=== PATIENT | female | born 1970 | race Caucasian/White ===

== ENCOUNTER → 2019-11-05 | Outpatient (CLI) | payer OTHER ==
[2019-11-09 15:10] LABS: HPV 16 Negative (Negative); HPV 18 Negative (Negative); HPV OTHER HR TYPES Negative (Negative)
== END | disposition home or self-care (01) ==
LOC: LAB SHORT 16:09 → LAB 16:09
PROVIDERS: Family Medicine
DX: Z01.419 Encounter for gynecological examination (general) (routine) without abnormal findings (principal)
CPT/HCPCS: 87624; G0145

== ENCOUNTER → 2020-02-21 | Outpatient (CLI) | payer OTHER | END | disposition home or self-care (01) | LOC: LAB SHORT 07:30 → PLD 07:30 | DX: D23.72 Other benign neoplasm of skin of left lower limb, including hip (principal) | CPT/HCPCS: 88305 ==

== ENCOUNTER → 2022-10-02 | Outpatient (CLI) | payer OTHER | END | disposition home or self-care (01) | LOC: PLD 11:01 → LAB 11:01 → LAB SHORT 11:01 | DX: D48.5 Neoplasm of uncertain behavior of skin (principal) | CPT/HCPCS: 88305 ==

== ENCOUNTER 2023-08-21 06:45 | Day surgery (SDC) | payer OTHER ==
[~2023-08-21] VITALS: Ht 165.1 cm; Wt 75.7 kg
[2023-08-21] MEDS ORDERED: AMBIEN5 MG PO (07:33)
[2023-08-21 08:41] VITALS: BP 97/62
--- NOTE | 2023-08-21 15:37 | NUR ---
08/21/23 Jes Hernandez LATE ENTRY: PRE-OPERATIVE TEST PERFORMED PRIOR TO PROCEDURE, BUT ENTERED INTO COMPUTER AT LATER TIME.
== END 2023-08-21 08:42 | disposition home or self-care (01) ==
LOC: ORSCSDS 06:45
PROVIDERS: Internal Medicine Gastroenterology
PROC: 0DJD8ZZ Inspection of Lower Intestinal Tract, Via Natural or Artificial Opening Endoscopic (ICD-10-PCS; principal; 2023-08-21 08:00)
DX: Z12.11 Encounter for screening for malignant neoplasm of colon (principal); Z87.891 Personal history of nicotine dependence
CPT/HCPCS: J2704; J7120

== ENCOUNTER 2024-07-11 07:54 | Inpatient (IN) | payer OTHER ==
[~2024-07-11] VITALS: Ht 162.6 cm; Wt 82.2 kg
[~2024-07-11 07:54] MED LIST: AMBIEN5 MG PO
[2024-07-11] MEDS ORDERED: Ondansetron HCl 2 MG / ML 2ML Vial IV ONE (08:10)
[2024-07-11] MEDS ORDERED: NS 1,000 ML IV SCH ×2 (08:10→11:20)
[2024-07-11] MEDS ORDERED: Ketorolac Tromethamine 30mg Vial IV ONE (08:10)
[2024-07-11 08:34] LABS: BASOPHILS ABSOLUTE AUTO 0.04 K/mm3 (0.00-0.23); BASOPHILS PERCENT AUTO 0 % (0-2); EOSINOPHILS ABSOLUTE AUTO 0.04 K/mm3 (0.00-0.68); EOSINOPHILS PERCENT AUTO 0 % (0-6); Hematocrit 39.6 % (33.0-51.0); Hemoglobin 14.2 g/dL (11.5-16.0); IMMATURE GRAN ABSOLUTE AUTO 0.08 K/mm3 (0.00-0.10); IMMATURE GRAN PERCENT AUTO 0 % (0-1); LYMPHOCYTES ABSOLUTE AUTO 1.14 K/mm3 (0.84-5.20); LYMPHOCYTES PERCENT AUTO 6 % (21-46); MONOCYTES ABSOLUTE AUTO 1.03 K/mm3 (0.16-1.47); MONOCYTES PERCENT AUTO 5 % (4-13); Mean Corpuscular HGB 29.7 pg (26.0-34.0); Mean Corpuscular HGB Conc 35.9 g/dL (31.5-36.5); Mean Corpuscular Volume 83 fL (80-100); Mean Platelet Volume 9.9 fL (9.1-12.4); NEUTROPHILS ABSOLUTE AUTO 16.96 K/mm3 (1.96-9.15); NEUTROPHILS PERCENT AUTO 88 % (41-73); Platelet Count 219 K/mm3 (150-400); RDW Coefficient Variation 12.4 % (11.7-14.2); RDW Standard Deviation 37.8 fL (35.1-46.3); Red Blood Cell Count 4.78 M/mm3 (3.80-5.20); White Blood Cell Count 19.29 K/mm3 (4.00-11.30)
[2024-07-11 08:43] LABS: Albumin, Blood 3.6 g/dL (3.4-5.0); Albumin/Globulin Ratio 1.1 (0.8-1.8); Bilirubin, Direct 0.1 mg/dL (0.0-0.3); Bilirubin, Indirect 0.6 mg/dL (0.1-0.7); Bilirubin, Total 0.7 mg/dL (0.1-1.0); Bun/Creatinine Ratio 22.9 (12.0-20.0); Calcium, Blood 9.3 mg/dL (8.5-10.1); Creatinine, Blood 0.57 mg/dL (0.40-1.00); Globulin, Blood 3.2 g/dL (2.2-4.0); Magnesium, Blood 1.6 mg/dL (1.6-2.4); Potassium, Blood 3.7 mmol/L (3.5-5.5); Total Protein, Blood 6.8 g/dL (6.4-8.2)
[2024-07-11 08:48] LABS: Source, Urine Clean Catch
[2024-07-11 08:58] LABS: Bilirubin, Urine Neg (Neg); Blood, Urine Neg (Neg); Glucose Qualitative, Urine Neg (Neg); Ketones, Urine Neg (Neg); Leukocyte Esterase, Urine Neg (Neg); Nitrite, Urine Neg (Neg); Protein, Urine Neg (Neg); Urobilinogen, Urine NORM (Normal)
[2024-07-11] MEDS ORDERED: Morphine Sulfate 4 MG/1 ML Injection IV ONE (09:05)
[2024-07-11 09:18] LABS: Appearance, Urine Clear (Clear); Color, Urine Yellow (P-Yellow)
[2024-07-11] MEDS ORDERED: LORazepam 2 MG/ML 1ML Injection IV ONE (09:40)
[2024-07-11 09:43] LABS: Influenza A, PCR NEGATIVE (NEGATIVE); Influenza B, PCR NEGATIVE (NEGATIVE); Resp Syncytial Virus, PCR NEGATIVE (NEGATIVE); SARS-Cov-2 (COVID-19) PCR, MMC NEGATIVE (NEGATIVE)
[2024-07-11] MEDS ORDERED: Metoclopramide HCl 5MG / ML 2ML Vial IV ONE (11:15)
[2024-07-11] MEDS ORDERED: DiphenhydrAMINE HCl 50 MG/ML 1ML Vial IV ONE (11:15)
[2024-07-11] MEDS ORDERED: Ampicillin Sod/Sulbactam Sod 3 GM in NS 100 ML IV ONE (11:20)
[2024-07-11] MEDS ORDERED: Ondansetron HCl 2 MG / ML 2ML Vial IV PRN (11:50)
[2024-07-11] MEDS ORDERED: FentaNYL Citrate 50 MCG/ML 2 ML Injection IV PRN (11:50)
[2024-07-11] MEDS ORDERED: FLU VACC TS2024-25(6MOS UP)/PF 45 MCG/0.5 ML SYRINGE IM SCH (11:50)
[2024-07-11] MEDS ORDERED: Lactated Ringer's 1,000 ML IV SCH ×2 (11:50→16:25)
[2024-07-11 15:41] VITALS: BP 129/70
[2024-07-11] MEDS ORDERED: MELO7.5 PO (15:47)
--- NOTE | 2024-07-11 16:52 | NUR ---
PHYSICIAN NOTIFICATION DR NGUYEN NOTIFIED OF LACTIC 2.8, ORDERED LITER BOLUS WIDE OPEN. THIS IS INFUSING. ORDERED APAP FOR ELEVATED TEMP. THIS WAS GIVEN. PT A/OX4. VERY TIRED, C/O HEADACHE AND WAS GIVEN ICE PACK FOR NECK AND HEAD, LIGHTS TURNED DOWN AND DOOR CLOSED. BED ALARM ON
[2024-07-11] MEDS ORDERED: Acetaminophen 325 MG TABLET PO PRN (17:00)
[2024-07-11] MEDS ORDERED: Acetaminophen 325 MG TABLET PO ONE (17:00)
[2024-07-11] MEDS ORDERED: Ampicillin Sod/Sulbactam Sod 3 GM in NS 100 ML IV SCH (18:00)
--- NOTE | 2024-07-11 18:08 | NUR ---
PHYSICIAN CONTACT CALLED DR NGUYEN REGARDING ADVANCING DIET, CONTINUED ELEVATED TEMP REGARDLESS APAP ADMIN PER NOV. ORDERED IBUPROFEN ONCE, INCREASE LR TO 125/HR, OKAYED SIPS AND CHIPS, RECHECK LACTIC AT 1999. ORDERS PLACED.
[2024-07-11] MEDS ORDERED: Ibuprofen 600 MG Tab PO ONE (18:10)
--- NOTE | 2024-07-11 18:17 | NUR ---
SHIFT SUMMARY PATIENT ARRIVED TO FLOOR THIS SHIFT FROM ER, CONCERNS FOR SEPSIS. LACTIC WAITING FOR RESULTS ON ARRIVAL. LR STARTED. SKIN INTACT. A/O X4. ABLE TO VOID. C/O ABDOMINAL PAIN, HEADACHE, BILAT KNEE PAIN AND BACK PAIN, NON PHARM INTERVENTIONS TRIED, LIGHTS DIMMED AND PATIENT ABLE TO REST IN BED WITH EYES CLOSED. ABLE TO MAKE NEEDS KNOWN. CALL LIGHT IN REACH, CARES ONGOING
[2024-07-11 19:48] VITALS: BP 111/61
[2024-07-11] MEDS ORDERED: Lactobacil 2-S.Thermo-Bifido 1 1 Cap PO SCH (21:00)
[2024-07-12 04:35] VITALS: BP 106/58
[2024-07-12 05:05] LABS: BASOPHILS ABSOLUTE AUTO 0.04 K/mm3 (0.00-0.23); BASOPHILS PERCENT AUTO 0 % (0-2); EOSINOPHILS PERCENT AUTO 1 % (0-6); Hematocrit 32.9 % (33.0-51.0); Hemoglobin 11.4 g/dL (11.5-16.0); IMMATURE GRAN ABSOLUTE AUTO 0.08 K/mm3 (0.00-0.10); IMMATURE GRAN PERCENT AUTO 0 % (0-1); LYMPHOCYTES ABSOLUTE AUTO 1.58 K/mm3 (0.84-5.20); LYMPHOCYTES PERCENT AUTO 9 % (21-46); MONOCYTES ABSOLUTE AUTO 0.88 K/mm3 (0.16-1.47); MONOCYTES PERCENT AUTO 5 % (4-13); Mean Corpuscular HGB 29.2 pg (26.0-34.0); Mean Corpuscular HGB Conc 34.7 g/dL (31.5-36.5); Mean Corpuscular Volume 84 fL (80-100); NEUTROPHILS ABSOLUTE AUTO 15.98 K/mm3 (1.96-9.15); NEUTROPHILS PERCENT AUTO 86 % (41-73); Platelet Count 185 K/mm3 (150-400); RDW Coefficient Variation 12.8 % (11.7-14.2); RDW Standard Deviation 39.1 fL (35.1-46.3); White Blood Cell Count 18.66 K/mm3 (4.00-11.30)
--- NOTE | 2024-07-12 05:13 | NUR ---
SHIFT SUMMARY PT AFEBRILE THROUGH THE NIGHT. LACTIC ACID IMPROVED TO 1.1. PT INDEPENDENT IN ROOM. IVF AND IV ANTIBIOTICS CONTINUE. PT C/O SOME ABD TENDERNESS, BUT DENIES THE NEED FOR PAIN MEDICATION. DENIES N/V/D. ICE PACK PRN HEADACHE. SIDE RAILS UP X2, CALL LIGHT WITHIN REACH.
[2024-07-12 05:30] LABS: Bun/Creatinine Ratio 16.5 (12.0-20.0); Calcium, Blood 8.2 mg/dL (8.5-10.1); Creatinine, Blood 0.55 mg/dL (0.40-1.00); Potassium, Blood 3.3 mmol/L (3.5-5.5)
[2024-07-12 07:29] VITALS: BP 129/77
[2024-07-12] MEDS ORDERED: Potassium Chloride 20 MEQ TabCR PO ONE ×2 (08:00→10:35)
[2024-07-12] MEDS ORDERED: Enoxaparin 40 MG/0.4 ML SYR SC SCH (09:00)
--- NOTE | 2024-07-12 16:37 | NUR ---
SHIFT SUMMARY PT RESTING QUIETLY AT START OF SHIFT, BUT AWAKE FOR SHIFT REPORT. PT ADMITTED FOR DIVERTICULITIS; NPO AT START OF SHIFT. DR ROSALES IN TO SEE PT AND DISCUSS PLAN OF CARE. DIET ADVANCED TO CL; PT TOLERATING WELL TO PRESENT. PT TAKING IT SLOW AT FIRST. MEDICATED X1 FOR C/O AGUIAR; PT REPORTING IT EFFECTIVE. UP INDEPENDNENTLY IN RM AND TO BTHRM. PT'S IN AFTER DR ROSALES AND AGAIN LATER THIS AFTERNOON. PT DENIES NEEDS TO PRESENT. NO C/O N/V. CALL LT IN REACH.
[2024-07-12 16:49] VITALS: BP 139/82
[2024-07-12] MEDS ORDERED: [UNRECOGNIZED DRUG - OTHER] PO (17:32)
[2024-07-12] MEDS ORDERED: Piperacillin/Tazobactam Sod 3.375 GM in NS 100 ML IV SCH (18:00)
[2024-07-12 19:24] VITALS: BP 134/73
[2024-07-13 02:31] VITALS: BP 131/74
--- NOTE | 2024-07-13 05:32 | NUR ---
SHIFT SUMMARY PT WITH ABD PAIN AND BACK PAIN DURING THE NIGHT. MEDICATED WITH FENTANYL X2 WITH RELIEF- SEE EMAR. PT C/O NAUSEA THIS EARLY AM, ZOFRAN GIVEN WITH RELIEF- SEE EMAR. ENCOURAGED PT TO SLOW DOWN CLEAR LIQUIDS WITH INCREASED PAIN/ NAUSEA, BUT PT STATES SHE HADN'T HAD ANY LIQUIDS SINCE HS. PT AFEBRILE THROUGH THE NIGHT. IVF AND ANTIBIOTICS CONTINUE. CALL LIGHT WITHIN REACH, SIDE RAILS UP X2.
[2024-07-13 05:49] LABS: BASOPHILS ABSOLUTE AUTO 0.03 K/mm3 (0.00-0.23); BASOPHILS PERCENT AUTO 0 % (0-2); EOSINOPHILS ABSOLUTE AUTO 0.09 K/mm3 (0.00-0.68); EOSINOPHILS PERCENT AUTO 1 % (0-6); Hematocrit 33.2 % (33.0-51.0); Hemoglobin 11.6 g/dL (11.5-16.0); IMMATURE GRAN ABSOLUTE AUTO 0.06 K/mm3 (0.00-0.10); IMMATURE GRAN PERCENT AUTO 0 % (0-1); LYMPHOCYTES PERCENT AUTO 10 % (21-46); MONOCYTES ABSOLUTE AUTO 0.73 K/mm3 (0.16-1.47); MONOCYTES PERCENT AUTO 5 % (4-13); Mean Corpuscular HGB 29.7 pg (26.0-34.0); Mean Corpuscular HGB Conc 34.9 g/dL (31.5-36.5); Mean Corpuscular Volume 85 fL (80-100); Mean Platelet Volume 10.3 fL (9.1-12.4); NEUTROPHILS ABSOLUTE AUTO 12.07 K/mm3 (1.96-9.15); NEUTROPHILS PERCENT AUTO 83 % (41-73); Platelet Count 181 K/mm3 (150-400); RDW Coefficient Variation 12.6 % (11.7-14.2); White Blood Cell Count 14.48 K/mm3 (4.00-11.30)
[2024-07-13 06:15] LABS: Albumin, Blood 2.7 g/dL (3.4-5.0); Albumin/Globulin Ratio 0.8 (0.8-1.8); Bun/Creatinine Ratio 8.6 (12.0-20.0); Calcium, Blood 8.9 mg/dL (8.5-10.1); Creatinine, Blood 0.58 mg/dL (0.40-1.00); Globulin, Blood 3.5 g/dL (2.2-4.0); Potassium, Blood 3.4 mmol/L (3.5-5.5); Total Protein, Blood 6.2 g/dL (6.4-8.2)
[2024-07-13 07:29] VITALS: BP 130/76
--- NOTE | 2024-07-13 16:05 | NUR ---
SHIFT SUMMARY PT RESTING QUIETLY AT START OF SHIFT, TEXTING ON PHONE DURING SHIFT REPORT. PT IMPROVING SOME AGAIN TODAY. IVF'S AND IV ABX INFUSING PER EMAR. PT UP WALKING HALLS WITH A COUPLE OF TIMES TODAY. INDEPENDENT IN RM AND TO BTHRM. TOLERATING CL DIET A LITTLE BETTER TODAY. COFFEE AND ICE BAG GIVEN FOR AGUIAR THIS AM. PT REPORTING IT EFFECTIVE. DENIES FURTHER NEEDS AT THIS TIME. CALL LT IN REACH.
[2024-07-13 16:46] VITALS: BP 144/80
[2024-07-13 19:48] VITALS: BP 132/83
[2024-07-14 02:05] VITALS: BP 127/63
[2024-07-14 05:09] LABS: BASOPHILS ABSOLUTE AUTO 0.02 K/mm3 (0.00-0.23); BASOPHILS PERCENT AUTO 0 % (0-2); EOSINOPHILS ABSOLUTE AUTO 0.17 K/mm3 (0.00-0.68); EOSINOPHILS PERCENT AUTO 2 % (0-6); Hematocrit 32.1 % (33.0-51.0); Hemoglobin 11.3 g/dL (11.5-16.0); IMMATURE GRAN ABSOLUTE AUTO 0.02 K/mm3 (0.00-0.10); IMMATURE GRAN PERCENT AUTO 0 % (0-1); LYMPHOCYTES ABSOLUTE AUTO 1.59 K/mm3 (0.84-5.20); LYMPHOCYTES PERCENT AUTO 16 % (21-46); MONOCYTES ABSOLUTE AUTO 0.69 K/mm3 (0.16-1.47); MONOCYTES PERCENT AUTO 7 % (4-13); Mean Corpuscular HGB 29.8 pg (26.0-34.0); Mean Corpuscular HGB Conc 35.2 g/dL (31.5-36.5); Mean Corpuscular Volume 85 fL (80-100); Mean Platelet Volume 10.3 fL (9.1-12.4); NEUTROPHILS ABSOLUTE AUTO 7.72 K/mm3 (1.96-9.15); NEUTROPHILS PERCENT AUTO 76 % (41-73); Platelet Count 193 K/mm3 (150-400); RDW Coefficient Variation 12.5 % (11.7-14.2); RDW Standard Deviation 38.4 fL (35.1-46.3); Red Blood Cell Count 3.79 M/mm3 (3.80-5.20); White Blood Cell Count 10.21 K/mm3 (4.00-11.30)
[2024-07-14 05:40] LABS: Bun/Creatinine Ratio 7.9 (12.0-20.0); Calcium, Blood 8.7 mg/dL (8.5-10.1); Creatinine, Blood 0.63 mg/dL (0.40-1.00); Potassium, Blood 3.2 mmol/L (3.5-5.5)
--- NOTE | 2024-07-14 05:57 | NUR ---
SHIFT SUMMARY PT INDEPENDENT IN ROOM. MEDICATED FOR ABD PAIN X1- SEE EMAR- WITH STATED RELIEF. PT WITH TEMP MAX OF 99.1- C/O FEELING HOT/COLD AND SOME BACK PAIN. MEDICATED WITH TYLENOL- SEE EMAR- WITH TEMP DECREASED AND RELIEF OF SYMPTOMS. IVF AND ANTIBIOTICS CONTINUE. CALL LIGHT WITHIN REACH. SIDE RAILS UP X2.
[2024-07-14 07:50] VITALS: BP 142/83
[2024-07-14] MEDS ORDERED: Ketorolac Tromethamine 15mg Vial IV ONE (09:00)
[2024-07-14] MEDS ORDERED: AMOCLA875 PO (14:36)
[2024-07-14] MEDS ORDERED: Acetaminophen325 M1 PO (14:36)
[2024-07-14] MEDS ORDERED: VISBIOME 112.51 EACH PO (14:37)
--- NOTE | 2024-07-14 14:53 | NUR ---
DISCHARGE SUMMARY PT DC THIS SHIFT AND DC INSTRUCTION GONE OVER WITH PT WHOM STATED UNDERSTANDING. PT DECLINED WANTING A WALKER AND WAS ESCORTED TO ELEVATOR WITH STEADY GAIT NOTED.
== END 2024-07-14 14:50 | disposition home or self-care (01) | DRG 872 ==
LOC: ER 07:54 → ERHOLD 11:45 → MEDS 15:33
PROVIDERS: Internal Medicine; Student in an Organized Health Care Education/Training Program; ADMIT Family Medicine
DX: A41.9 Sepsis, unspecified organism (principal); K57.32 Diverticulitis of large intestine without perforation or abscess without bleeding; R65.20 Severe sepsis without septic shock; E78.00 Pure hypercholesterolemia, unspecified; E66.9 Obesity, unspecified; R51.9 Headache, unspecified; R07.9 Chest pain, unspecified; F41.1 Generalized anxiety disorder; Z90.89 Acquired absence of other organs; Z98.890 Other specified postprocedural states; Z88.5 Allergy status to narcotic agent; Z79.899 Other long term (current) drug therapy; Z68.32 Body mass index [BMI] 32.0-32.9, adult
CPT/HCPCS: 0241U; 36415; 70450; 71046; 74177; 80048; 80053; 80076; 81003; 83605; 83690; 83735; 84484; 85025; 87040; 93005; 93010; 96361; 96374-59; 96375; 99285-25; A9270; J0295; J1200; J1650; J1885; J2060; J2270; J2405; J2543; J2765; J3010; J7030; J7120; Q9967

== ENCOUNTER 2024-12-14 09:33 | Day surgery (SDC) | payer OTHER ==
[~2024-12-14] VITALS: Ht 160 cm; Wt 84.0 kg
[2024-12-14] VITALS (12 sets, daily range): BP systolic 104–130; BP diastolic 56–84
[~2024-12-14 09:33] MED LIST changes: +AMOCLA875 PO; +Acetaminophen325 M1 PO; +EPIPEN0.3 MG/0.3 IM; +MELO7.5 PO; +VISBIOME 112.51 EACH PO; +[UNRECOGNIZED DRUG - OTHER] PO
[2024-12-14] MEDS ORDERED: Lactated Ringer's 1,000 ML IV SCH ×2 (09:45→11:05)
[2024-12-14] MEDS ORDERED: CeFAZolin Sodium 2,000 MG in NS 100 ML IV SCH ×2 (09:50→21:00)
[2024-12-14] MEDS ORDERED: Acetaminophen 500 MG Tab PO SCH ×2 (09:50→16:00)
[2024-12-14] MEDS ORDERED: Ropivacaine 0.5% HCl/Pf 123.125 MG,EPINEPHrine HCL 0.25 MG,Ketorolac Tromethamine 15 MG... INFIL SCH (09:50)
[2024-12-14] MEDS ORDERED: Chlorhexidine Mouth Care 15 ML UDC MT SCH (09:50)
[2024-12-14] MEDS ORDERED: Tranexamic Acid 100 ML IV SCH (09:52)
[2024-12-14] MEDS ORDERED: ZOLP5 PO (10:08)
[2024-12-14] MEDS ORDERED: MELOXICAM10 MG PO (10:08)
[2024-12-14] MEDS ORDERED: OxyCODONE HCL 10 MG TABCR PO SCH (10:15)
[2024-12-14] MEDS ORDERED: Ondansetron HCl 2 MG / ML 2ML Vial IV PRN ×2 (10:45→15:20)
[2024-12-14] MEDS ORDERED: OxyCODONE HCL 5 MG TAB PO PRN ×2 (10:45)
[2024-12-14] MEDS ORDERED: Metoclopramide HCl 5MG / ML 2ML Vial IV PRN (10:45)
[2024-12-14] MEDS ORDERED: Magnesium Hydroxide Conc 10 ML UDC PO PRN (10:45)
[2024-12-14] MEDS ORDERED: Promethazine HCl 25 MG Tab PO PRN (10:45)
[2024-12-14] MEDS ORDERED: DiphenhydrAMINE HCL 25 MG Cap PO PRN (10:50)
[2024-12-14] MEDS ORDERED: HYDROmorphone HCl/Pf 1MG SYR IV PRN ×3 (10:50→15:20)
[2024-12-14] MEDS ORDERED: Bisacodyl 10 MG Supp PR PRN (10:50)
[2024-12-14] MEDS ORDERED: propofoL 60 ML IV ONE (11:59)
[2024-12-14] MEDS ORDERED: Midazolam HCl 1MG / ML 2ML Vial ONE (12:00)
[2024-12-14] MEDS ORDERED: Phenylephrine HCl 100 MCG/ML-NS 10MLSYR (1MG/10ML) ONE (12:44)
[2024-12-14] MEDS ORDERED: Ondansetron HCl 2 MG / ML 2ML Vial ONE (12:50)
[2024-12-14] MEDS ORDERED: Dexamethasone Sod Phos 10 MG/ML 1ML VIAL ONE (12:50)
[2024-12-14] MEDS ORDERED: Ketorolac Tromethamine 30mg Vial ONE (12:51)
[2024-12-14] MEDS ORDERED: propofoL 40 ML IV ONE (13:17)
[2024-12-14] MEDS ORDERED: propofoL 100 ML IV ONE (13:19)
[2024-12-14] MEDS ORDERED: Tranexamic Acid 100 ML IV ONE (15:12)
[2024-12-14] MEDS ORDERED: FentaNYL Citrate 50 MCG/ML 2 ML Injection IV PRN ×2 (15:15)
[2024-12-14] MEDS ORDERED: Labetalol HCL 5 MG/ML 4ML Injection (Single Dose) IV PRN (15:20)
--- NOTE | 2024-12-14 16:00 | NUR ---
ARRIVAL NOTE PT TO ROOM 221 FROM PACU. ALERT, RESPONSIVE. PT HAS SENSATION AT S1 AND CAN WIGGLE TOES BUT CANNOT LIFT LEGS OFF THE BED YET. VSS. PAS ON. POLAR PACK, ERIC HOSE IN PLACE. SPOUSE AT BEDSIDE. CALL LIGHT IN REACH.
[2024-12-14] MEDS ORDERED: Ketorolac Tromethamine 15mg Vial IV SCH (18:00)
--- NOTE | 2024-12-14 18:16 | NUR ---
SHIFT SUMMARY PT IS PODO FOR R TKA. PT WORKED W/ P TW/ FWW AND GB. INC VOID WHEN GETTING UP FOR THE FIRST TIME. TOLERATING REG DIET AND FLUIDS. PAIN TOLERABLE W/ PAIN MEDS PER EMAR. VSS. POLAR PACK, ERIC MELO, SCDS IN PLACE. DRESSING C/D/I. CAP REFILL IN R TOES 2 SECS, PT ABLE TO WIGGLE TOES. RESTING IN RECLINER W/ CALL LIGHT IN REACH.
--- NOTE | 2024-12-14 19:45 | NUR ---
DISCHARGE SUMMARY POD 0 R TKA. VSS. TOLERATING ORALS. AQUACEL DRESSING & RAYRAY WRAP C/D/I. PT REPORTS PAIN TOLEABLE c ORAL MEDICATIONS. AMBULATING USING FWW c SBA. VOIDING. PT REPORTS FULL SENSATION S/P SPINAL. DISCHARGE INSTRUCTIONS GIVEN, PT VERBALIZES UNDERSTANDING. POLAR PACK & HOME FWW D/C c PT. PT D/C VIA WHEELCHAIR TO POV DRIVEN BY SPOUSE.
[2024-12-14] MEDS ORDERED: Zolpidem Tartrate 5 MG Tab PO SCH (21:00)
[2024-12-14] MEDS ORDERED: Docusate Sodium 100 MG Cap PO SCH (21:00)
[2024-12-15] MEDS ORDERED: Apixaban 5 MG Tab PO SCH (09:00)
== END 2024-12-14 20:07 | disposition home or self-care (01) ==
LOC: ORSCMMR 09:33 → SURS 09:36 → ORSCMMR 10:11 → SURS 10:11 → ORSCMMR 11:00 → ORD 11:00 → SURS 15:49 → ORSCMMR 15:49 → SURS 20:07 → ORSCMMR 20:07
PROVIDERS: Orthopaedic Surgery
PROC: 0S9D3ZZ Drainage of Left Knee Joint, Percutaneous Approach (ICD-10-PCS; principal; 2024-12-14 11:00)
PROC: 0SRC0J9 Replacement of Right Knee Joint with Synthetic Substitute, Cemented, Open Approach (ICD-10-PCS; principal; 2024-12-14 11:00)
DX: M17.0 Bilateral primary osteoarthritis of knee (principal); Z79.899 Other long term (current) drug therapy; Z86.718 Personal history of other venous thrombosis and embolism
CPT/HCPCS: 73560-RT; 97116; 97161; 97530; A9270; C1713; C1776; J0690; J1100; J1171; J1885; J2250; J2371; J2405; J2704; J7120

== ENCOUNTER → 2025-03-28 | Outpatient (CLI) | payer OTHER ==
[~2025-03-28] MED LIST changes: +ACET500 PO; +ELIQUIS2.5 MG PO; +NEURONTIN300 MG PO; +Percocet 5-3251 EACH PO; +ZOLP5 PO
[2025-03-28 17:02] LABS: BASOPHILS ABSOLUTE AUTO 0.04 K/mm3 (0.00-0.23); BASOPHILS PERCENT AUTO 0 % (0-2); EOSINOPHILS ABSOLUTE AUTO 0.08 K/mm3 (0.00-0.68); EOSINOPHILS PERCENT AUTO 1 % (0-6); Hematocrit 39.0 % (33.0-51.0); Hemoglobin 13.7 g/dL (11.5-16.0); IMMATURE GRAN ABSOLUTE AUTO 0.04 K/mm3 (0.00-0.10); IMMATURE GRAN PERCENT AUTO 0 % (0-1); LYMPHOCYTES ABSOLUTE AUTO 2.00 K/mm3 (0.84-5.20); LYMPHOCYTES PERCENT AUTO 13 % (21-46); MONOCYTES ABSOLUTE AUTO 0.71 K/mm3 (0.16-1.47); MONOCYTES PERCENT AUTO 5 % (4-13); Mean Corpuscular HGB Conc 35.1 g/dL (31.5-36.5); Mean Corpuscular Volume 81 fL (80-100); NEUTROPHILS ABSOLUTE AUTO 13.00 K/mm3 (1.96-9.15); NEUTROPHILS PERCENT AUTO 82 % (41-73); NRBC ABSOLUTE 0.00 K/mm3 (0.00-0.02); NRBC Auto 0.0 /100 WBC (0.0-0.2); Platelet Count 210 K/mm3 (150-400); RDW Coefficient Variation 12.5 % (11.7-14.2); RDW Standard Deviation 36.8 fL (35.1-46.3)
[2025-03-28 17:12] LABS: Alanine Aminotransfer (ALT/SGP 27.0 U/L (12-78); Albumin, Blood 3.6 g/dL (3.4-5.0); Albumin/Globulin Ratio 0.9 (0.8-1.8); Anion Gap 13.0 mmol/L (3-11); Aspartate Aminotrans (AST/SGOT 24.0 U/L (12-37); Bilirubin, Total 1.2 mg/dL (0.1-1.0); Blood Urea Nitrogen 6.0 mg/dL (8-24); CO2, Blood 24.0 mmol/L (21-32); Calcium, Blood 9.3 mg/dL (8.5-10.1); Chloride, Blood 101.0 mmol/L (98-108); Creatinine, Blood 0.72 mg/dL (0.40-1.00); Globulin, Blood 3.8 g/dL (2.2-4.0); Glucose, Blood 151.0 mg/dL (70-99); Potassium, Blood 3.4 mmol/L (3.5-5.5); Sodium, Blood 135.0 mmol/L (136-145); Total Protein, Blood 7.4 g/dL (6.4-8.2)
== END ==
LOC: LAB 16:57 → LAB SHORT 16:57
PROVIDERS: Chiropractor
DX: R10.31 Right lower quadrant pain (principal)
CPT/HCPCS: 80053; 85025

== ENCOUNTER → 2025-06-30 | Outpatient (CLI) | payer OTHER | LOC: LAB SHORT 10:51 → LAB 10:51 | PROVIDERS: Advanced Practice Midwife | DX: Z01.419 Encounter for gynecological examination (general) (routine) without abnormal findings (principal) | CPT/HCPCS: 87624; G0145 ==